=== PATIENT | female | born 1960 | race Caucasian/White ===

== ENCOUNTER 2018-07-31 15:26 | Emergency (ER) | payer OTHER ==
[~2018-07-31] VITALS: Ht 157.5 cm; Wt 71.2 kg
[2018-07-31] MEDS ORDERED: NEURONTIN600 MG (16:09)
[2018-07-31] MEDS ORDERED: DUI500 PO (21:07)
== END 2018-07-31 21:35 | disposition home or self-care (01) ==
LOC: ER 15:26 → EDBD 15:26 → ER 16:50
DX: S90.122A Contusion of left lesser toe(s) without damage to nail, initial encounter (principal); W22.8XXA Striking against or struck by other objects, initial encounter; Y93.89 Activity, other specified; Y92.89 Other specified places as the place of occurrence of the external cause; Y99.8 Other external cause status

== ENCOUNTER 2019-01-15 19:03 | Emergency (ER) | payer OTHER ==
[~2019-01-15] VITALS: Ht 157.5 cm; Wt 74.8 kg
[~2019-01-15 19:03] MED LIST: DUI500 PO; NEURONTIN600 MG
[2019-01-15] MEDS ORDERED: OMEPRAZOLE20 M2 PO (19:48)
[2019-01-15] MEDS ORDERED: NEURONTIN600 MG PO (19:48)
[2019-01-15] MEDS ORDERED: EXELON1 EAC1 TD (19:49)
== END 2019-01-16 09:52 | disposition home or self-care (01) ==
LOC: ER 19:03
DX: M86.8X7 Other osteomyelitis, ankle and foot (principal); M79.675 Pain in left toe(s)

== ENCOUNTER 2019-01-20 11:10 | Inpatient (IN) | payer OTHER ==
[~2019-01-20] VITALS: Ht 157.5 cm; Wt 68.0 kg
[~2019-01-20 11:10] MED LIST changes: +EXELON1 EAC1 TD; +NEURONTIN600 MG PO; +OMEPRAZOLE20 M2 PO
--- NOTE | 2019-01-20 12:26 | NUR ---
PACIENTE ALERTA,ORIENTADA EN ORBERTO ESFERAS,AMBULANDO SIN DIFICULTAD. REFIERE INFECCION EN PRIMER DEDO DE PIE LT,LE REALIZARON MRI VIENE PARA LECTURA DEL MISMO.
--- NOTE | 2019-01-20 14:31 | NUR ---
BAJO MEDIDAS ASEPTICAS AL PACIENTE SE LE CANALIZA Y SE LE GAUTAM MUESTRAS DE FIORDALIZA PARA REALIZAR LABORATORIOS. FLORENTIN ORDEN MEDICA SE LE JEFFERY SALINE LOCK.
[2019-01-27] MEDS ORDERED: INTESTINEX680 M1 PO (14:29)
== END 2019-01-27 17:18 | disposition home or self-care (01) | DRG 465 ==
LOC: ER 11:10 → SURG 15:04
PROVIDERS: Specialist; ADMIT Internal Medicine
PROC: 0JBR0ZZ Excision of Left Foot Subcutaneous Tissue and Fascia, Open Approach (ICD-10-PCS; principal; 2019-01-22 14:00)
DX: M86.672 Other chronic osteomyelitis, left ankle and foot (principal); L03.032 Cellulitis of left toe; G62.89 Other specified polyneuropathies; K21.9 Gastro-esophageal reflux disease without esophagitis; K44.9 Diaphragmatic hernia without obstruction or gangrene